=== PATIENT | male | born 1960 | race African-American/Black ===

== ENCOUNTER → 2020-04-24 | Outpatient (CLI) | payer MEDICARE, MEDICAID ==
--- NOTE | 2020-04-24 15:40 | RADIOLOGY REPORT (SQ) ---
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 RADIONUCLIDE AND DOSE: 21.00 millicuries Tc-99m Sestamibi. The route of agent administration: Intravenous ADDITIONAL DRUGS AND DOSES: None. TECHNIQUE: Early and delayed images of the neck acquired following radionuclide administration. LIMITATIONS: None. FINDINGS: Thyroid: Normal size. Homogeneous activity. Normal washout. No focal lesions. Parathyroid: No retained activity in the thyroid or elsewhere in the neck to indicate a parathyroid a denoma. Other: No other significant findings. IMPRESSION: NORMAL STUDY. NO EVIDENCE OF PARATHYROID ADENOMA. TECHNICAL DOCUMENTATION: JOB ID: [id number] 2010 [employer]- All Rights Reserved Reading location - IP/workstation name: [email or web address]
== END ==
LOC: RAD 11:11
PROVIDERS: ATTEND Surgery
DX: N25.81 Secondary hyperparathyroidism of renal origin (principal)
CPT/HCPCS: 78070; A9500; Q9969